=== PATIENT | male | born 1975 | race Asian ===

== ENCOUNTER 2023-02-26 13:19 | Emergency (ER) | payer BC ==
[~2023-02-26] VITALS: Ht 175.3 cm; Wt 90.0 kg
[2023-02-26] MEDS ORDERED: dexamethasone 4mg/ml inj PO STA (14:29)
--- NOTE | 2023-02-26 15:15 | NUR ---
Pt reassessed, states no change in rash at this time.
[2023-02-26] MEDS ORDERED: PRED20TA PO (15:32)
[2023-02-26] MEDS ORDERED: EPIN0.3P3 IM (15:32)
[2023-02-26 15:41] VITALS: BP 147/95
== END 2023-02-26 15:44 | disposition home or self-care (01) ==
LOC: ER 13:19
DX: T78.40XA Allergy, unspecified, initial encounter (principal); Z79.899 Other long term (current) drug therapy; X58.XXXA Exposure to other specified factors, initial encounter
CPT/HCPCS: 99283; J1100

== ENCOUNTER 2023-02-28 09:14 | Emergency (ER) | payer BC ==
[~2023-02-28] VITALS: Ht 175.3 cm; Wt 90.9 kg
[~2023-02-28 09:14] MED LIST: EPIN0.3P3 IM; PRED20TA PO
--- NOTE | 2023-02-28 10:51 | NUR ---
VISITOR AT BEDSIDE - NO OUTWARD S\S DISTRESS - AWAITING MD AT THIS TIME
[2023-02-28] MEDS ORDERED: famotidine/PF 10 mg/ml inj IV ONE (11:35)
[2023-02-28] MEDS ORDERED: diphenhydrAMINE 50 mg/ml inj IV ONE (11:35)
[2023-02-28] MEDS ORDERED: methylPREDNISolone sod succ 125mg/2ml vial IV ONE (11:35)
[2023-02-28 12:03] LABS: BASOPHILS % (AUTO) 0.4 % (0-1); EOSINOPHILS % (AUTO) 0.3 % (0-6); HEMATOCRIT 44.4 % (42.0-52.0); HEMOGLOBIN 14.4 g/dl (14.0-17.9); LYMPHOCYTES # (AUTO) 1.1 X10'3 (1.1-4.8); LYMPHOCYTES % (AUTO) 7.9 % (21-51); MEAN CORPUSCULAR HEMOGLOBIN 26.1 PG (27.0-31.0); MEAN CORPUSCULAR HGB CONC 32.4 g/dL (33.0-36.5); MEAN CORPUSCULAR VOLUME 80.6 FL (78-98); MEAN PLATELET VOLUME 8.6 FL (7.4-10.4); MONOCYTES # (AUTO) 0.4 X10'3 (0-0.9); MONOCYTES % (AUTO) 2.9 % (2-12); NEUTROPHILS # (AUTO) 12.5 X10'3 (1.8-7.7); NEUTROPHILS % (AUTO) 88.5 % (42-75); PLATELET COUNT 262 X10'3 (140-440); RED BLOOD COUNT 5.51 X10'6 (4.70-6.10); RED CELL DISTRIBUTION WIDTH 14.5 % (11.5-14.5); WHITE BLOOD COUNT 14.1 X10'3 (4.5-11.0)
[2023-02-28 12:20] LABS: ALANINE AMINOTRANSFERASE 38 U/L (12-78); ALBUMIN 3.4 G/DL (3.4-5.0); ALBUMIN/GLOBULIN RATIO 0.9 (1.1-1.5); ALKALINE PHOSPHATASE 53 IU/L (46-116); ANION GAP 9 (8-16); ASPARTATE AMINO TRANSFERASE 26 U/L (10-37); BILIRUBIN,TOTAL 0.4 MG/DL (0.1-1.0); BLOOD UREA NITROGEN 12 MG/DL (7-18); BUN/CREATININE RATIO 11.9 (10.0-20.0); CALCIUM 8.6 MG/DL (8.5-10.1); CHLORIDE 102 MMOL/L (99-107); CREATININE 1.01 MG/DL (0.60-1.10); GLUCOSE 138 MG/DL (70-104); SODIUM 138 MMOL/L (135-145); TOTAL CARBON DIOXIDE 26.6 MMOL/L (24-32); TOTAL PROTEIN 7.1 G/DL (6.4-8.2); eGFR 79 ML/MIN
[2023-02-28 12:22] LABS: POTASSIUM 4.4 MMOL/L (3.5-5.1)
[2023-02-28] MEDS ORDERED: PRED20TA PO (14:04)
[2023-02-28 14:24] VITALS: BP 135/84
== END 2023-02-28 14:26 | disposition home or self-care (01) ==
LOC: ER 09:15
DX: T78.49XA Other allergy, initial encounter (principal); Z91.030 Bee allergy status; X58.XXXA Exposure to other specified factors, initial encounter
CPT/HCPCS: 80053; 85025; 96374; 96375; 99284; J1200; J2930; J3490